=== PATIENT | female | born 1995 | race Caucasian/White ===

== ENCOUNTER 2021-07-13 16:07 | Emergency (ER) | payer MEDICAID ==
[~2021-07-13] VITALS: Ht 160 cm; Wt 72.7 kg
[2021-07-13 18:25] VITALS: BP 130/95
--- NOTE | 2021-07-14 09:51 | NUR ---
PHYSICIAN DOCUMENTATION STATES PT IS ASYMPTOMATIC. I CALLED PT TO INFORM HER THAT SHE IS NOT A CANDIDATE BC SHE DOESNT HAVE SYMPTOMS. PT AWARE.
== END 2021-07-13 18:25 | disposition home or self-care (01) ==
LOC: ED 16:07
DX: U07.1 COVID-19 (principal); M34.9 Systemic sclerosis, unspecified; F17.290 Nicotine dependence, other tobacco product, uncomplicated; Z79.899 Other long term (current) drug therapy

== ENCOUNTER 2021-07-16 21:23 | Emergency (ER) | payer MEDICAID ==
[~2021-07-16] VITALS: Ht 160 cm; Wt 72.0 kg
[2021-07-16 22:01] LABS: HEMATOCRIT 43.3 % (37.0-47.0); HEMOGLOBIN 14.2 g/dl (12.0-16.0); IMMATURE GRANULOCYTES 0.3 % (0.0-5.0); MEAN CELL VOLUME 88.4 fL CALC (80.0-100.0); MEAN CORPUSCULAR HGB CONC 32.8 g/dL CAL (32.0-36.0); NEUT# 1.35 thou/uL (2.00-7.15); RED BLOOD COUNT 4.9 mill/uL (4.20-5.60); RED CELL DISTRI WIDTH 12.3 % (11.5-15.5)
[2021-07-16 22:22] LABS: ALBUMIN 4.6 g/dL (3.2-5.0); ALKALINE PHOSPHATASE 58 u/l (38-126); ANION GAP 15 (6-22 (CALC)); BILIRUBIN, TOTAL 0.3 mg/dL (0.0-1.4); BUN 6 mg/dL (7-17); BUN/CREATININE RATIO 10 (12-20 (CALC)); CARBON DIOXIDE 27 mmol/l (22-30); CHLORIDE 102 mmol/l (95-108); CREATININE 0.6 mg/dL (0.5-1.0); GFR > 60 ML/MIN (>=60 (CALC)); GFR FOR AFR.AMER. > 60 ML/MIN (>=60 (CALC)); POTASSIUM 4.1 mmol/l (3.5-5.1); SGOT/AST 25 u/l (14-36); SODIUM 139 mmol/l (137-146); TOTAL PROTEIN 8.1 g/dL (6.3-8.2)
[2021-07-16 23:05] LABS: URINE BILIRUBIN - DIPSTICK NEGATIVE (NEGATIVE); URINE BLOOD DIPSTICK LARGE (NEGATIVE); URINE GLUCOSE - DIPSTICK NEGATIVE (NEGATIVE); URINE KETONE NEGATIVE (NEGATIVE); URINE LEUK ESTERASE NEGATIVE (NEGATIVE); URINE PROTEIN - DIPSTICK 30 mg/dL (NEG-TRACE); URINE UROBILINOGEN - DIPSTICK 0.2 E.U./dL (0.2)
[2021-07-16 23:06] LABS: URINE COLOR RED; URINE NITRITE - DIPSTICK NEGATIVE (Negative)
[2021-07-16 23:07] LABS: URINE RBC >100 RBC/hpf (0-5)
[2021-07-17] MEDS ORDERED: ZOFRAN4 MG/TAB PO (00:10)
[2021-07-17] MEDS ORDERED: IMODIUM2 MG PO (00:10)
[2021-07-17] MEDS ORDERED: ZPAK PO (00:10)
[2021-07-17 00:27] VITALS: BP 125/83
[2021-07-18] MEDS ORDERED: ZOFRAN4 MG/TAB PO (12:45)
[2021-07-18] MEDS ORDERED: DEXAMETHASON6 MG PO (12:46)
== END 2021-07-17 01:10 | disposition home or self-care (01) ==
LOC: ED 21:23
PROVIDERS: Emergency Medicine
DX: U07.1 COVID-19 (principal); M34.9 Systemic sclerosis, unspecified

== ENCOUNTER 2021-07-17 16:23 | Observation (INO) | payer MEDICAID ==
[~2021-07-17] VITALS: Ht 160 cm; Wt 75.0 kg
[~2021-07-17 16:23] MED LIST: IMODIUM2 MG PO; ZOFRAN4 MG/TAB PO; ZPAK PO
[2021-07-17 17:01] LABS: HEMATOCRIT 42.8 % (37.0-47.0); HEMOGLOBIN 13.8 g/dl (12.0-16.0); IMMATURE GRANULOCYTES 0.2 % (0.0-5.0); MEAN CELL VOLUME 88.6 fL CALC (80.0-100.0); MEAN CORPUSCULAR HGB 28.6 pG CALC (26.0-32.0); MEAN CORPUSCULAR HGB CONC 32.2 g/dL CAL (32.0-36.0); NEUT# 2.38 thou/uL (2.00-7.15); RED BLOOD COUNT 4.83 mill/uL (4.20-5.60); RED CELL DISTRI WIDTH 12.1 % (11.5-15.5)
[2021-07-17 17:13] LABS: ALBUMIN 4.3 g/dL (3.2-5.0); ALKALINE PHOSPHATASE 59 u/l (38-126); ANION GAP 13 (6-22 (CALC)); BILIRUBIN, TOTAL 0.4 mg/dL (0.0-1.4); BUN 7 mg/dL (7-17); BUN/CREATININE RATIO 11 (12-20 (CALC)); CARBON DIOXIDE 26 mmol/l (22-30); CHLORIDE 105 mmol/l (95-108); CREATININE 0.6 mg/dL (0.5-1.0); GFR > 60 ML/MIN (>=60 (CALC)); GFR FOR AFR.AMER. > 60 ML/MIN (>=60 (CALC)); SGOT/AST 20 u/l (14-36); SODIUM 140 mmol/l (137-146); TOTAL PROTEIN 7.8 g/dL (6.3-8.2)
[2021-07-17 19:30] VITALS: BP 126/80
[2021-07-17 20:00] VITALS: BP 112/71
[2021-07-17 21:00] VITALS: BP 125/77
[2021-07-17 22:00] VITALS: BP 108/65
[2021-07-17 23:05] VITALS: BP 121/81
[2021-07-18 04:00] VITALS: BP 120/74
[2021-07-18 05:29] LABS: HEMATOCRIT 37.2 % (37.0-47.0); HEMOGLOBIN 12.3 g/dl (12.0-16.0); IMMATURE GRANULOCYTES 0.2 % (0.0-5.0); MEAN CELL VOLUME 88.6 fL CALC (80.0-100.0); MEAN CORPUSCULAR HGB 29.3 pG CALC (26.0-32.0); MEAN CORPUSCULAR HGB CONC 33.1 g/dL CAL (32.0-36.0); NEUT# 4.29 thou/uL (2.00-7.15); RED BLOOD COUNT 4.2 mill/uL (4.20-5.60); RED CELL DISTRI WIDTH 12.1 % (11.5-15.5)
[2021-07-18 05:45] LABS: ALBUMIN 3.7 g/dL (3.2-5.0); ALKALINE PHOSPHATASE 49 u/l (38-126); ANION GAP 14 (6-22 (CALC)); BILIRUBIN, TOTAL 0.3 mg/dL (0.0-1.4); BUN 9 mg/dL (7-17); BUN/CREATININE RATIO 18 (12-20 (CALC)); C-REACTIVE PROTEIN 0.8 mg/dL (0-0.9); CARBON DIOXIDE 22 mmol/l (22-30); CHLORIDE 106 mmol/l (95-108); CREATININE 0.5 mg/dL (0.5-1.0); GFR > 60 ML/MIN (>=60 (CALC)); GFR FOR AFR.AMER. > 60 ML/MIN (>=60 (CALC)); SGOT/AST 16 u/l (14-36); SODIUM 138 mmol/l (137-146); TOTAL PROTEIN 6.4 g/dL (6.3-8.2)
[2021-07-18 07:32] VITALS: BP 138/98
[2021-07-18 10:41] VITALS: BP 115/64
[2021-07-18] MEDS ORDERED: ZOFRAN4 MG/TAB PO (12:45)
[2021-07-18] MEDS ORDERED: DEXAMETHASON6 MG PO (12:46)
[2021-07-18 14:42] VITALS: BP 118/74
== END 2021-07-18 17:59 | disposition home or self-care (01) ==
LOC: ED 16:23 → ED-I 18:32 → ED 20:37 → MS2 20:38
PROVIDERS: Family Medicine; ADMIT Hospitalist; ATTEND Hospitalist
DX: U07.1 COVID-19 (principal); E86.0 Dehydration; M34.9 Systemic sclerosis, unspecified
CPT/HCPCS: G0378; J1650; J3475

== ENCOUNTER 2023-04-07 20:55 | Emergency (ER) | payer OTHER ==
[~2023-04-07] VITALS: Ht 160 cm; Wt 73.6 kg
[~2023-04-07 20:55] MED LIST changes: +DEXAMETHASON6 MG PO
[2023-04-07] MEDS ORDERED: NORMODYNE/TRAN100 MG PO (21:33)
[2023-04-07 21:42] LABS: URINE BILIRUBIN - DIPSTICK NEGATIVE (NEGATIVE); URINE BLOOD DIPSTICK NEGATIVE (NEGATIVE); URINE COLOR YELLOW; URINE GLUCOSE - DIPSTICK NEGATIVE (NEGATIVE); URINE KETONE NEGATIVE (NEGATIVE); URINE LEUK ESTERASE NEGATIVE (NEGATIVE); URINE PH 6.5 (4.5-8.0); URINE PROTEIN - DIPSTICK NEGATIVE (NEG-TRACE); URINE SPECIFIC GRAVITY <=1.005; URINE UROBILINOGEN - DIPSTICK 0.2 E.U./dL (0.2)
[2023-04-07 21:43] LABS: BASO% 0.2 % (0-3); EOS% 3.7 % (0-8); HEMOGLOBIN 11.8 g/dl (12.0-16.0); IMMATURE GRANULOCYTES 0.1 % (0.0-5.0); LYMPH% 24.8 % (15-41); MEAN CORPUSCULAR HGB 28.5 pG CALC (26.0-32.0); MEAN CORPUSCULAR HGB CONC 32.8 g/dL CAL (32.0-36.0); MONO% 5.3 % (2-13); NEUT# 6.13 thou/uL (2.00-7.15); NEUT% 65.9 % (42-76); RED BLOOD COUNT 4.14 mill/uL (4.20-5.60); RED CELL DISTRI WIDTH 13.1 % (11.5-15.5)
[2023-04-07 21:44] LABS: URINE NITRITE - DIPSTICK NEGATIVE (Negative)
[2023-04-07 21:59] LABS: ALKALINE PHOSPHATASE 45 u/l (38-126); ANION GAP 11 (6-22 (CALC)); BILIRUBIN, TOTAL 0.3 mg/dL (0.02-1.3); BUN 8 mg/dL (7-17); BUN/CREATININE RATIO 19 (12-20 (CALC)); CARBON DIOXIDE 23 mmol/l (22-30); CHLORIDE 106 mmol/l (95-108); CREATININE 0.4 mg/dL (0.5-1.0); GFR FOR AFR.AMER. > 60 ML/MIN (>=60 (CALC)); GFR OTHER RACES > 60 ML/MIN (>=60 (CALC)); POTASSIUM 3.9 mmol/l (3.5-5.1); SGOT/AST 19 u/l (14-36); SODIUM 135 mmol/l (137-146); TOTAL PROTEIN 6.9 g/dL (6.3-8.2)
[2023-04-07 22:02] LABS: D-DIMER 0.6 mg/L (0.19-0.60)
[2023-04-07 22:05] LABS: ACT PARTIAL THROMBO TIME 22.8 SECONDS (20.0-32.5); PROTHROMBIN TIME 9.9 SECONDS (9.0-12.5)
[2023-04-07] MEDS ORDERED: LABETALOL HYDR200 MG PO (22:44)
[2023-04-07 22:56] VITALS: BP 123/88
== END 2023-04-07 23:09 | disposition home or self-care (01) ==
LOC: ED 20:55
PROVIDERS: Family Medicine
DX: O99.412 Diseases of the circulatory system complicating pregnancy, second trimester (principal); R00.2 Palpitations; O16.2 Unspecified maternal hypertension, second trimester; O99.891 Other specified diseases and conditions complicating pregnancy; M34.9 Systemic sclerosis, unspecified; Z3A.19 19 weeks gestation of pregnancy; Z86.16 Personal history of COVID-19

== ENCOUNTER 2023-11-17 12:50 | Emergency (ER) | payer OTHER ==
[~2023-11-17] VITALS: Ht 160 cm; Wt 68.0 kg
[2023-11-17] VITALS (16 sets, daily range): BP systolic 114–150; BP diastolic 79–116
[~2023-11-17 12:50] MED LIST changes: +LABETALOL HYDR200 MG PO; +NORMODYNE/TRAN100 MG PO
[2023-11-17 14:01] LABS: ALKALINE PHOSPHATASE 60 u/l (38-126); ANION GAP 16 (6-22 (CALC)); BILIRUBIN, TOTAL 0.9 mg/dL (0.02-1.3); BUN 13 mg/dL (7-17); BUN/CREATININE RATIO 21 (12-20 (CALC)); CARBON DIOXIDE 22 mmol/l (22-30); CHLORIDE 105 mmol/l (95-108); CREATININE 0.6 mg/dL (0.5-1.0); GFR FOR AFR.AMER. > 60 ML/MIN (>=60 (CALC)); GFR OTHER RACES > 60 ML/MIN (>=60 (CALC)); POTASSIUM 4.2 mmol/l (3.5-5.1); SGOT/AST 42 u/l (14-36); SODIUM 139 mmol/l (137-146); TOTAL PROTEIN 7.8 g/dL (6.3-8.2)
[2023-11-17 14:02] LABS: ALBUMIN 4.7 g/dL (3.2-5.0); BASO% 0.8 % (0-3); EOS% 2.9 % (0-8); HEMATOCRIT 43.5 % (37.0-47.0); HEMOGLOBIN 14.4 g/dl (12.0-16.0); INTERNATIONAL NORMALIZED RATIO 1.1 RATIO (0.7-1.3); LYMPH% 27.5 % (15-41); MEAN CELL VOLUME 88.1 fL CALC (80.0-100.0); MEAN CORPUSCULAR HGB 29.1 pG CALC (26.0-32.0); MEAN CORPUSCULAR HGB CONC 33.1 g/dL CAL (32.0-36.0); MONO% 6.2 % (2-13); NEUT# 3.93 thou/uL (2.00-7.15); NEUT% 62.6 % (42-76); PROTHROMBIN TIME 10.4 SECONDS (9.0-12.5); RED BLOOD COUNT 4.94 mill/uL (4.20-5.60); RED CELL DISTRI WIDTH 12.5 % (11.5-15.5)
[2023-11-17 15:11] LABS: URINE BILIRUBIN - DIPSTICK Negative (NEGATIVE); URINE BLOOD DIPSTICK Large (NEGATIVE); URINE GLUCOSE - DIPSTICK Negative (NEGATIVE); URINE KETONE Negative (NEGATIVE); URINE LEUK ESTERASE Negative (NEGATIVE); URINE NITRITE - DIPSTICK Negative (Negative); URINE PH 7.5 (4.5-8.0); URINE PROTEIN - DIPSTICK Negative (NEG-TRACE); URINE SPECIFIC GRAVITY 1.015; URINE UROBILINOGEN - DIPSTICK 0.2 E.U./dL (0.2)
[2023-11-17 15:12] LABS: URINE COLOR Yellow
[2023-11-17 15:16] LABS: URINE RBC 25-50 RBC/hpf (0-5)
[2023-11-17 15:17] LABS: URINE SQUAMOUS EPITHELIAL CELL FEW EPI/hpf (0-FEW)
[2023-11-17] MEDS ORDERED: ZESTRIL5 M1 PO (16:39)
== END 2023-11-17 16:51 | disposition home or self-care (01) ==
LOC: ED 12:50
PROVIDERS: Family Medicine
DX: I16.0 Hypertensive urgency (principal); I10 Essential (primary) hypertension; I34.0 Nonrheumatic mitral (valve) insufficiency; Z86.16 Personal history of COVID-19; Z79.82 Long term (current) use of aspirin

== ENCOUNTER 2023-12-06 17:59 | Emergency (ER) | payer OTHER ==
[~2023-12-06] VITALS: Ht 160 cm; Wt 65.0 kg
[2023-12-06] VITALS (21 sets, daily range): BP systolic 111–135; BP diastolic 77–99
[~2023-12-06 17:59] MED LIST changes: +ZESTRIL5 M1 PO
[2023-12-06 18:25] LABS: BASO% 0.3 % (0-3); EOS% 0.7 % (0-8); HEMATOCRIT 44.7 % (37.0-47.0); HEMOGLOBIN 14.8 g/dl (12.0-16.0); IMMATURE GRANULOCYTES 0.2 % (0.0-5.0); MEAN CELL VOLUME 86.1 fL CALC (80.0-100.0); MEAN CORPUSCULAR HGB 28.5 pG CALC (26.0-32.0); MEAN CORPUSCULAR HGB CONC 33.1 g/dL CAL (32.0-36.0); MONO% 3.5 % (2-13); NEUT# 5.05 thou/uL (2.00-7.15); NEUT% 83.3 % (42-76); RED BLOOD COUNT 5.19 mill/uL (4.20-5.60); RED CELL DISTRI WIDTH 11.8 % (11.5-15.5)
[2023-12-06 18:34] LABS: ALBUMIN 4.8 g/dL (3.2-5.0); ALKALINE PHOSPHATASE 56 u/l (38-126); ANION GAP 14 (6-22 (CALC)); BUN 10 mg/dL (7-17); BUN/CREATININE RATIO 18 (12-20 (CALC)); CARBON DIOXIDE 26 mmol/l (22-30); CHLORIDE 103 mmol/l (95-108); CREATININE 0.6 mg/dL (0.5-1.0); GFR FOR AFR.AMER. > 60 ML/MIN (>=60 (CALC)); GFR OTHER RACES > 60 ML/MIN (>=60 (CALC)); MAGNESIUM 1.9 mg/dL (1.6-2.3); POTASSIUM 4.2 mmol/l (3.5-5.1); SGOT/AST 31 u/l (14-36); SODIUM 138 mmol/l (137-146); TOTAL PROTEIN 7.7 g/dL (6.3-8.2)
[2023-12-06 18:42] LABS: BILIRUBIN, TOTAL 0.5 mg/dL (0.02-1.3)
[2023-12-06] MEDS ORDERED: METOPROLOL SUCC50 MG PO (20:50)
== END 2023-12-06 23:17 | disposition home or self-care (01) ==
LOC: ED 17:59
PROVIDERS: Nurse Practitioner
DX: R00.0 Tachycardia, unspecified (principal); I10 Essential (primary) hypertension; I34.0 Nonrheumatic mitral (valve) insufficiency; Z86.16 Personal history of COVID-19

== ENCOUNTER 2025-01-29 08:53 | Emergency (ER) | payer OTHER ==
[~2025-01-29] VITALS: Ht 160 cm; Wt 72.0 kg
[~2025-01-29 08:53] MED LIST changes: +METOPROLOL SUCC50 MG PO; +NAPROXEN500 MG PO
[2025-01-29] MEDS ORDERED: AMOX/K CLAV875 M1 PO (10:56)
[2025-01-29] MEDS ORDERED: OMNI-PAC300 MG PO (11:01)
[2025-01-29] MEDS ORDERED: TRAMADOL HYDROC50 M1 PO (11:01)
[2025-01-29 11:08] VITALS: BP 134/93
== END 2025-01-29 11:14 | disposition home or self-care (01) ==
LOC: ED 08:53
DX: J02.9 Acute pharyngitis, unspecified (principal); I10 Essential (primary) hypertension; I34.0 Nonrheumatic mitral (valve) insufficiency; Z20.822 Contact with and (suspected) exposure to COVID-19